=== PATIENT | male | born 1970 | race Caucasian/White ===

== ENCOUNTER 2016-10-12 23:49 | Emergency (ER) | payer OTHER ==
[2016-10-13] MEDS ORDERED: DIPHENHYDRAMINE HCL 25 MG CAPSULE ONE ×2 (01:31→02:09)
[2016-10-13] MEDS ORDERED: FAMOTIDINE 20 MG TABLET ONE (01:31)
[2016-10-13] MEDS ORDERED: DEXAMETHASONE SOD PHOS 10 MG/1 ML VIAL ONE (01:32)
== END 2016-10-13 02:17 | disposition home or self-care (01) ==
LOC: ED 23:49
DX: T78.40XA Allergy, unspecified, initial encounter (principal)
CPT/HCPCS: 99283 ×2; A9270 ×3; J1100